=== PATIENT | male | born 1995 | race African-American/Black ===

== ENCOUNTER 2017-05-12 22:02 | Emergency (ER) | payer OTHER ==
[~2017-05-12] VITALS: Ht 180.3 cm; Wt 95.9 kg
[2017-05-12 22:02] VITALS: BP 128/61
[2017-05-12] MEDS ORDERED: BACT800T5 PO (22:53)
[2017-05-12] MEDS ORDERED: BACTRIM 160MG/800MG DS TAB PO ONE (23:00)
== END 2017-05-12 23:06 | disposition home or self-care (01) ==
LOC: M ED 22:02
DX: L73.1 Pseudofolliculitis barbae (principal); Z91.018 Allergy to other foods